=== PATIENT | female | born 1975 | race Caucasian/White ===

== ENCOUNTER 2023-10-13 16:02 | Emergency (ER) | payer BC, SELFPAY ==
[2023-10-13 16:05] VITALS: BP 124/70
[2023-10-13 16:37] LABS: % Basophils 0.5 % (0-2); % Eosinophils 2.1 % (0-6); % Immature Granulocytes 0.3 % (0-0.5); % Lymphocytes 45.2 % (20.5-51.1); % Monocytes 5.9 % (1.7-9.3); Absolute Eosinophils 0.2 10^3/uL (0-0.7); Absolute Lymphocytes 3.4 10^3/uL (1.2-3.4); Absolute Monocytes 0.4 10^3/uL (0.1-0.6); Absolute Neutrophils 3.4 10^3/uL (1.4-6.5); Hematocrit 38.4 % (37.0-47.0); Hemoglobin 12.8 g/dL (12.0-16.0); Mean Corp Hgb Conc. 33.3 g/dL (33.0-37.0); Mean Corpuscular Volume 90.1 fL (81.0-99.0); Nucleated Red Blood Cells % 0 %; Platelet Count 289 10^3/uL (130-400); Red Blood Cell Count 4.26 10^6/uL (4.20-5.40); Red Cell Dist. Width 12.4 % (11.5-14.5); White Blood Cell Count 7.5 10^3/uL (4.8-10.8)
[2023-10-13 17:01] LABS: ALT (SGPT) 21 U/L (0-35); AST (SGOT) 33 U/L (14-36); Albumin 4.4 g/dl (3.5-5.0); Alkaline Phosphatase 56 U/L (38-126); Blood Urea Nitrogen 14 mg/dl (7-17); Calcium 9.5 mg/dl (8.4-10.2); Carbon Dioxide 26 mmol/L (22-30); Chloride 105 mmol/L (98-107); Glucose 98 mg/dl (70-99); Potassium 4.4 mmol/L (3.5-5.1); Sodium 139 mmol/L (135-145); Total Bilirubin 0.6 mg/dl (0.2-1.3); Total Protein 7.2 g/dl (6.3-8.2); eGFR > 60.00
[2023-10-13 17:10] VITALS: BP 112/82
--- NOTE | 2023-10-13 17:19 | ED.GENMED ---
History of Present Illness
General
Chief Complaint: Abdominal Pain
Time Seen by Provider: 10/13/23 17:04
Travel History
Have you had any contact with someone who has COVID-19?: No
Do you have any symptoms of coronavirus? Fever > 100 degrees, chills, cough, shortness of breath, sore throat, loss of taste or smell, muscle aches, or headache?: No
History of Present Illness
History of Present Illness:
48-year-old female presents the emergency department for evaluation of progressive worsening umbilicus area pain for the past several days. She states the pain worsens whenever she bends forward. She noted discharge from the umbilicus yesterday.
No fevers or chills. Denies any trauma to the area. Prior abdominal surgery includes x 1, no history of umbilical hernia. No associated fever, chills, sweats, nausea, vomiting, or diarrhea.
Review of Systems
Review of Systems
Allergies reviewed?: Yes
All Other Systems: ROS reviewed and negative except as documented in HPI and ROS
Phy Exam
Physical Exam
Physical Exam:
GEN: Well appearing, NAD, WDWN
HEENT: Oral mucosa moist, no scleral icterus
Cardiac: Regular rate
Lung: No respiratory distress, no tachypnea
Abdomen: Abdomen is generally soft and nontender, there is mild umbilicus tenderness with scant purulent discharge from a cryptic appearing umbilicus, no overt erythema or induration
MSK: No gross deformity or injuries
Skin: Good color, no pallor or jaundice, no rashes
Neuro: AO x3, moves all extremities freely
Psych: Calm, cooperative
Course
Orders/Labs/Results
Orders:
Orders
10/13/23 16:15
Complete Blood Count/With Diff Urgent
Comprehensive Metabolic Panel Urgent
10/13/23 16:15
10/13/23 16:15
Vital Signs
Initial and Last Documented VS:
Initial Vital Signs
Temp Pulse Resp BP Pulse Ox
98.2 F 78 18 124/70 98
10/13/23 16:05 10/13/23 16:05 10/13/23 16:05 10/13/23 16:05 10/13/23 16:05
Last Documented Vital Signs
Temp Pulse Resp BP Pulse Ox
98.2 F 91 18 112/82 98
10/13/23 16:05 10/13/23 17:10 10/13/23 17:10 10/13/23 17:10 10/13/23 17:10
MDM/Problems Addressed
MDM/Problems Addressed:
Likely a focal cellulitis of the umbilicus, no palpable abscess. No indication for imaging. Labs reassuring. Will start on oral and topical antibiotics
*Critical Care Note
Total Time (30-74mins, 75-104mins- exclusive of procedures): Not Applicable
ED Attending Note
-
Portions of this chart may have been created with voice recognition software.� Occasional wrong word or��sound alike� substitutions may have occurred due to the inherent limitations of voice recognition software.
Discharge Plan
Departure
Patient Disposition: Home (Routine Discharge)
Date of Disposition: 10/13/23
Time of Disposition: 17:21
Patient with high blood pressure during this ER visit?: No
Discharge Problem:
Cellulitis of umbilicus
Instructions: Cellulitis (Skin Infection), Adult ED
Prescriptions:
New
cephalexin 500 mg capsule
500 mg PO Q8H 5 Days Qty: 15 0RF
mupirocin 2 % ointment
1 applic topical BID 7 Days Qty: 22 0RF
Interventions
Interventions:
*Risk Screen - Suicide Last Done: 10/13/23 16:05
*General Assessment Last Done: 10/13/23 16:05
*Neglect/Abuse Screening Last Done: 10/13/23 16:05
*ED COVID-19 Vaccine History Last Done: 10/13/23 16:05
*Nursing Disposition Last Done: 10/13/23 17:35
[facility] Assessment Last Done: 10/13/23 16:57
Discharge Date and Time
Discharge Date/Time: 10/13/23 17:36
Print Language: SYRIAC
== END 2023-10-13 17:36 | disposition home or self-care (01) ==
LOC: EMR 16:02
PROVIDERS: EMERGENCY PHYSICIAN Emergency Medicine; FAMILY PHYSICIAN Student in an Organized Health Care Education/Training Program
DX: L03.316 Cellulitis of umbilicus (principal)
CPT/HCPCS: 99283; 80053; 85025

== ENCOUNTER → 2024-06-22 10:04 | Outpatient (REF) | payer BC, SELFPAY | LOC: WDC 10:04 | PROVIDERS: ATTENDING PHYSICIAN Obstetrics & Gynecology Gynecology; FAMILY PHYSICIAN Student in an Organized Health Care Education/Training Program | DX: N64.4 Mastodynia (principal) | CPT/HCPCS: 76642; 77062; 77066 ==

== ENCOUNTER → 2024-07-08 13:25 | Outpatient (REF) | payer BC, SELFPAY | LOC: HWRAD 13:25 | PROVIDERS: ATTENDING PHYSICIAN Obstetrics & Gynecology Gynecology; FAMILY PHYSICIAN Student in an Organized Health Care Education/Training Program | DX: N93.9 Abnormal uterine and vaginal bleeding, unspecified (principal) | CPT/HCPCS: 76830; 76856 ==